=== PATIENT | female | born 1950 | race Caucasian/White ===

== ENCOUNTER → 2017-03-06 | Outpatient (CLI) | payer OTHER | LOC: BRMIMAGING 13:23 | DX: Z12.31 Encounter for screening mammogram for malignant neoplasm of breast (principal) | CPT/HCPCS: G0202 ==

== ENCOUNTER → 2018-03-08 | Outpatient (CLI) | payer OTHER | LOC: BRMIMAGING 10:51 | DX: Z12.31 Encounter for screening mammogram for malignant neoplasm of breast (principal) ==